=== PATIENT | male | born 1970 | race Caucasian/White ===

== ENCOUNTER 2016-08-16 04:15 | Emergency (ER) | payer SELFPAY ==
[2016-08-16 05:18] LABS: Basophils % (Auto) 1.3 % (0.0-1.8); Eosinophils % (Auto) 1.6 % (0.0-4.3); Hematocrit 42.3 % (35.5-45.6); Hemoglobin 14.9 gm/dl (11.8-15.2); Mean Corpuscular HGB Conc 35 % (32-34); Mean Corpuscular Hemoglobin 31 pg (28-32); Mean Corpuscular Volume 88 fl (84-94); Platelet Count 195 K/mm3 (140-440); Red Cell Distribution Width 13.6 % (13.2-15.2); White Blood Count 7.2 K/mm3 (4.5-11.0)
[2016-08-16 05:33] LABS: BUN/Creatinine Ratio 16.36; Blood Urea Nitrogen 18 mg/dL (9-20); Carbon Dioxide 24 mmol/L (22-30); Chloride 93.7 mmol/L (98-107); Glucose 405 mg/dL (75-100); Potassium 4.7 mmol/L (3.6-5.0); Sodium 134 mmol/L (137-145)
[2016-08-16 05:46] LABS: Anion Gap 21 mmol/L
[2016-08-16] MEDS ORDERED: NACL 0.9% 1000 ML 1,000 ML IV ONE ×3 (08:07→11:29)
--- NOTE | 2016-08-16 08:21 | Emergency Department Report ---
HPI - General Chief Complaint: Pain General Time Seen by Provider: 08/16/16 08:06 - HPI HPI: This is a 46-year-old Afro-[place] male presents to the emergency department with complaint of cramps to the bilateral arms and the feet since this morning. He has also been complaining that he has been very thirsty lately and having frequent urination. He says that he told his symptoms to another friend who has diabetes and was told that appear consistent with diabetes. They have a blood sugar monitor at home and the patient checked it and it was greater than 600. He has no diagnosed history of diabetes but it is in his family and both his brother and his father. He has not taken anything for symptoms prior to presentation. He denies any chest pain, shortness breath, fever, nausea, vomiting. No recent travel or sick contacts at home. He does not have a primary care doctor. 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 denies: joint swelling Skin: denies: rash, lesions Neurological: denies: headache, weakness, paresthesias Physical Exam - Physical Exam Vital Signs: Vital Signs 08/16/16 04:36 Temperature 98.5 F Pulse Rate 100 H Respiratory 18 Rate Blood Pressure 147/96 Blood Pressure 147/96 [Left] O2 Sat by Pulse 100 Oximetry Physical Exam: GENERAL: The patient is well-developed well-nourished. HEENT: Normocephalic. Atraumatic. Extraocular motions are intact. Patient has moist mucous membranes. Pupils equal reactive to light bilaterally. NECK: Supple. Trachea is midline. CHEST/LUNGS: Clear to auscultation. There is no respiratory distress noted. HEART/CARDIOVASCULAR: Regular. There is no tachycardia. There is no gallop rub or murmur. ABDOMEN: Abdomen is soft, nontender. Patient has normal bowel sounds. There is no abdominal distention. Obese habitus. SKIN: There is no rash. There is no edema. There is no diaphoresis. NEURO: The patient is awake, alert, and oriented. The patient is cooperative. The patient has no focal neurologic deficits. The patient has normal speech. MUSCULOSKELETAL: There is no tenderness or deformity. There is no limitation range of motion. There is no evidence of acute injury. ED Course Vital Signs 08/16/16 04:36 Temperature 98.5 F Pulse Rate 100 H Respiratory 18 Rate Blood Pressure 147/96 Blood Pressure 147/96 [Left] O2 Sat by Pulse 100 Oximetry ED Medical Decision Making - Lab Data Result diagrams: 08/16/16 05:01 08/16/16 05:01 - Medical Decision Making 46-year-old male presents to the emergency department with complaint of some polyuria, polydipsia and new onset hyperglycemia. Patient allegedly had a blood sugar greater than 600 at home but it was 377 here. He was given 2 L of IV fluid and a few doses of IV insulin and his blood sugars come down to 240. He has a slight anion gap but there is no significant ketones or acidosis. He does not appear to be in diabetic ketoacidosis or HHNK. Patient says he is feeling better. Vital signs stable throughout his ED course. His urinalysis shows 12 white blood cell so he'll be treated with some Macrobid for a very mild urinary tract infection. Patient be started on metformin. We discussed dietary changes. He was given multiple referrals for primary care. He will return to the ER with any worsening of his symptoms or any acute distress. - Differential Diagnosis diabetic ketoacidosis, HHNK, UTI, electrolyte abnormalities Critical Care Time: No Critical care attestation.: If time is entered above; I have spent that time in minutes in the direct care of this critically ill patient, excluding procedure time. ED Disposition Clinical Impression: Diabetes mellitus, new onset, Hyperglycemia, Polyuria UTI (urinary tract infection) Qualifiers: Urinary tract infection type: acute cystitis Hematuria presence: without hematuria Qualified Code(s): N30.00 - Acute cystitis without hematuria Disposition: DISCHARGED TO HOME OR SELFCARE Is pt being admited?: No Condition: Stable Instructions: Urinary Tract Infection in Men (ED), Diabetes Mellitus Type 2 in Adults (ED) Additional Instructions: Please follow-up with a primary care doctor in the next few days. Return to the emergency department with any worsening of your symptoms or any acute distress. I started to on metformin, twice daily, to treat your new onset diabetes. Try to stay away from foods that are high in sugar, carbohydrates, and starches. Keep a blood sugar log. Prescriptions: metFORMIN [Glucophage] 500 mg PO BID #60 tablet Nitrofurantoin Barton/M-Cryst [Macrobid CAP] 100 mg PO Q12HR #14 capsule Referrals: PRIMARY CARE [Primary Care Provider] - 3-5 Days [facility] [Outside] - 3-5 Days [facility] [Outside] - 3-5 Days [facility] [Outside] - 3-5 Days [facility] [Outside] - 3-5 Days Time of Disposition: 12:51
[2016-08-16 10:38] LABS: Bilirubin,Urine Negative (Negative)
[2016-08-16 10:42] LABS: Ketones,Urine 15 mg/dL (Negative); Mucus,Urine FEW /HPF
[2016-08-16 10:43] LABS: Blood,Urine Trace (Negative); Leukocyte Esterase,Urine Negative (Negative); Nitrite,Urine Negative (Negative); Urobilinogen,Urine 0.2 mg/dL (<2.0)
[2016-08-16 13:10] VITALS: BP 170/96
== END 2016-08-16 13:10 | disposition home or self-care (01) ==
LOC: ED 04:15
DX: E11.65 Type 2 diabetes mellitus with hyperglycemia (principal); N30.00 Acute cystitis without hematuria; R35.8 Other polyuria; Z87.891 Personal history of nicotine dependence
CPT/HCPCS: 36415; 80048; 81001; 82010; 82805; 82962; 85025; 96361; 96374; 96376; 99284; J7030; J1815

== ENCOUNTER 2022-01-28 05:34 | Emergency (ER) | payer OTHER ==
[2022-01-28 06:53] VITALS: BP 180/100
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
== END 2022-01-28 12:00 | disposition home or self-care (01) ==
LOC: ED 05:34
DX: S39.012A Strain of muscle, fascia and tendon of lower back, initial encounter (principal); I10 Essential (primary) hypertension; M62.838 Other muscle spasm; X58.XXXA Exposure to other specified factors, initial encounter; Y93.89 Activity, other specified; Y92.89 Other specified places as the place of occurrence of the external cause; Y99.8 Other external cause status
CPT/HCPCS: 99283